=== PATIENT | female | born 1935 | race African-American/Black ===

== ENCOUNTER 2019-02-06 19:32 | Emergency (ER) | payer OTHER ==
[~2019-02-06] VITALS: Ht 160 cm; Wt 52.0 kg
[2019-02-06] MEDS ORDERED: HYDRALAZINE 20MG/ML VIAL IV ONE (20:15)
[2019-02-06 20:52] LABS: BASOPHILS % 0.8 % (0.0-2.0); EOSINOPHILS % 2.8 % (0.0-5.0); HEMATOCRIT. 34.2 % (36.0-48.0); HEMOGLOBIN. 10.7 g/dL (12.0-16.0); LYMPHOCYTES % 27.7 % (20.0-50.0); MEAN CORPUSCULAR HEMOGLOBIN 28.6 pg (28.0-32.0); MEAN CORPUSCULAR VOLUME 91.2 fL (81.0-99.0); MEAN PLATELET VOLUME 9.1 fl (7.4-10.4); MONOCYTES % 11.5 % (2.0-8.0); NEUTROPHILS % 57.2 % (40.0-76.0); PLATELET 143 x1000/uL (130-400); RED BLOOD CELL COUNT 3.75 mill/uL (4.2-5.4)
[2019-02-06 20:58] LABS: CHLORIDE 104 mEq/L (98-107)
[2019-02-06 21:06] LABS: INR 1.1; PARTIAL THROMBOPLASTIN TIME 51.3 sec (23.4-31.0)
[2019-02-06 22:19] VITALS: BP 151/50
== END 2019-02-06 22:30 | disposition short-term general hospital (02) ==
LOC: ER 19:32 → EDBD 19:32 → ER 22:30
DX: T82.838A Hemorrhage due to vascular prosthetic devices, implants and grafts, initial encounter (principal); Y84.1 Kidney dialysis as the cause of abnormal reaction of the patient, or of later complication, without mention of misadventure at the time of the procedure; I12.0 Hypertensive chronic kidney disease with stage 5 chronic kidney disease or end stage renal disease; N18.6 End stage renal disease; Z99.2 Dependence on renal dialysis; Z88.8 Allergy status to other drugs, medicaments and biological substances; Y92.89 Other specified places as the place of occurrence of the external cause
CPT/HCPCS: 36415; 80053; 83880; 84484; 85025; 85610; 85730; 86850; 86900; 86901; 93005; 99291; J0360

== ENCOUNTER 2024-03-10 04:42 | Emergency (ER) | payer OTHER ==
[~2024-03-10] VITALS: Ht 160 cm; Wt 45.0 kg
[2024-03-10 04:54] VITALS: O2SAT 98
[2024-03-10 06:14] LABS: BASOPHILS % 1.2 % (0.0-2.0); DIFFERENTIAL COMMENT 0; EOSINOPHILS % 0.6 % (0.0-5.0); HEMATOCRIT. 43.1 % (36.0-48.0); HEMOGLOBIN. 13.3 g/dL (12.0-16.0); LYMPHOCYTES % 10.2 % (20.0-50.0); MEAN CORPUSCULAR HGB CONC 30.9 g/dL (31.0-37.0); MEAN CORPUSCULAR VOLUME 93.8 fL (81.0-99.0); MEAN PLATELET VOLUME 8.4 fl (7.4-10.4); MONOCYTES % 12.4 % (2.0-8.0); NEUTROPHILS % 75.6 % (40.0-76.0); PLATELET 99 x1000/uL (130-400); RED BLOOD CELL COUNT 4.59 mill/uL (4.2-5.4); RED CELL DISTRIBUTION WIDTH 19.9 % (11.6-14.6)
[2024-03-10] MEDS: ACETAMINOPHEN 325MG TABLET PO ONE (06:15)
[2024-03-10 06:28] LABS: CHLORIDE 104 mEq/L (98-107); POTASSIUM 5.3 mEq/L (3.5-5.1); SODIUM 141 mEq/L (136-145)
[2024-03-10 06:29] LABS: CARBON DIOXIDE 29 mEq/L (21-32)
[2024-03-10 06:30] LABS: CALCIUM 9.4 mg/dL (8.7-10.4)
[2024-03-10 06:35] LABS: GLUCOSE 115 mg/dL (70-105); UREA NITROGEN BLOOD 54 mg/dL (9-23)
[2024-03-10 06:36] LABS: TROPONIN I HIGH SENSITIVITY 29 ng/L (3.0-34)
[2024-03-10 06:42] LABS: CREATININE 5.2 mg/dL (0.6-1.0)
[2024-03-10] MEDS: OXYCODONE HCL/ACETAMINOPHEN 5/325MG TABLET PO ONE (09:18)
[2024-03-10 10:09] VITALS: BP 170/80; PULSE 71; RESP 18; TEMP 97.9
== END 2024-03-10 10:50 | disposition hospice, inpatient (51) ==
LOC: ER 04:42 → EDBEDREQ 09:38 → ER 10:50
DX: M25.552 Pain in left hip (principal); E11.9 Type 2 diabetes mellitus without complications; I13.0 Hypertensive heart and chronic kidney disease with heart failure and stage 1 through stage 4 chronic kidney disease, or unspecified chronic kidney disease; N18.6 End stage renal disease; I50.9 Heart failure, unspecified; Z98.890 Other specified postprocedural states; Z99.2 Dependence on renal dialysis
CPT/HCPCS: 36415; 71045; 73502; 80048; 83880; 84484; 85025; 93005; 99285